=== PATIENT | female | born 1980 | race Hispanic/Latino ===

== ENCOUNTER 2017-09-17 23:15 | Inpatient (IN) | payer OTHER ==
[2017-09-17 23:58] VITALS: BMI 32.6
[2017-09-18] MEDS ORDERED: CEFAZOLIN/Water 2 GM/20 ML SYRINGE ONE (00:16)
[2017-09-18] MEDS ORDERED: Bicitra 30 ML UDCUP ONE (00:16)
[2017-09-18] MEDS: Lactated Ringer's 1,000 ML IV SCH ×2 (00:25→00:47)
[2017-09-18] MEDS ORDERED: Ondansetron HCl/PF 4 MG/2 ML Vial IVP PRN ×3 (00:33→03:56)
[2017-09-18] MEDS ORDERED: Promethazine HCl 25 MG/ML VIAL IM PRN ×3 (00:33→03:56)
[2017-09-18 00:37] LABS: Hemoglobin 10.9 g/dL (12.0-16.0); Mean Corpuscular HGB CONC 32.7 g/dL (32.0-36.0); Mean Corpuscular Hemoglobin 24.5 pg (27.0-31.0); Mean Corpuscular Volume 74.8 fL (78.0-98.0); Mean Platelet Volume 8.1 fL (7.4-10.4); Platelet Count 332 thou/uL (130-400); RBC Distribution Width 15.4 % (11.5-14.5); Red Blood Cell (RBC) Count 4.45 mill/uL (4.20-5.40); White Blood Cell (WBC) Count 8.6 thou/uL (4.8-10.8)
[2017-09-18] MEDS ORDERED: NS / Oxytocin 40 units/1000ml 1,000 ML IV SCH ×2 (00:45→03:56)
[2017-09-18] MEDS ORDERED: Bicitra 30 ML UDCUP PO SCH (00:45)
[2017-09-18] MEDS ORDERED: CEFAZOLIN/Water 2 GM/20 ML SYRINGE SLOW IVP SCH (00:45)
--- NOTE | 2017-09-18 00:57 | PDOC.LDHP ---
Labor and Delivery H&P Chief complaint: contractions HPI: 37yo at 38w2d by LMP with A2GDM with SROM painful ctx. Good FM. Current gestational age (weeks): 38 Due date: 09/30/17 Dating criteria: last menstrual period Grav: 3 Para: 2 OB History Details: prior cs x 2 Current complications: gestational diabetes (a2 on metformin) Abnormal US findings: No Current medications: pre- vitamins, other (metformin 1000 q hs) Previous surgical history: low tranverse CS Allergies/Adverse Reactions: Allergies Allergy/AdvReac Type Severity Reaction Status Date / Time No Known Allergies Allergy Verified 09/17/17 23:49 Social history: none - Physical Exam Vital signs reviewed and normal: yes General: NAD Heart: RRR Lungs: CTAB Abdomen: gravid Extremeties: no edema FHT: category 1 [place] contractions every: 4min - Vaginal Exam cm dilated: 6 Station: -1 - OB Labs RH: positive Antibody Screen: negative HIV: negative RPR: negative HEPSAg: negative 1 hour GCT: positive 3 hour GTT: positive GBS: negative Urine drug screen: not done Rubella: immune - Assessment 37yo at 38w2d by LMP with A2GDM previous x 2 in labor, dispo for RCS now. R/B/A d/w pt and she agrees to proceed.
[2017-09-18] MEDS ORDERED: Morphine PF 1 MG/ML SYR ONE (00:58)
[2017-09-18] MEDS ORDERED: Oxytocin 10 UNITS/ML VIAL ONE (00:59)
[2017-09-18] MEDS ORDERED: Ondansetron HCl/PF 4 MG/2 ML Vial ONE (00:59)
[2017-09-18] MEDS ORDERED: ePHEDrine/0.9% NaCl/PF SYRINGE 50 mg/10 ml ONE (00:59)
[2017-09-18] MEDS ORDERED: Lidocaine 1% PF 5 ML VIAL ONE (01:00)
[2017-09-18] MEDS ORDERED: Bupivacaine 0.75% W/DEXTROSE 8.25% 2 ML AMP ONE (01:00)
[2017-09-18 01:27] LABS: HBSAg Index 0.25 S/CO (0-0.99); Hep B Surf Ag Non-Reactive S/CO (NonReactive)
[2017-09-18] MEDS ORDERED: Fentanyl 100 MCG/2 ML VIAL ONE (01:37)
--- NOTE | 2017-09-18 02:14 | PDOC.OPDEL ---
OB Operative/Delivery Note Delivery Dr/Surgeon: Arsen Assist: Rosalia Pre-Delivery Diagnosis: active labor ( at 38wk, previous CS x 2 declines TOLAC, A2GDM) Procedure/Post Delivery Dx: repeat low transverse CS Weeks gestation: 38 Anesthesia: spinal - Findings A Sex: female Weight: 7 lb 9 oz - 1 min: 8 - 5 min: 9 - Additional Findings/Plan Placenta delivered: spontaneous findings: low transverse hysterotomy without extension, normal uterus, normal tubes, normal ovaries Estimated blood loss: 600 Post delivery plan: routine recovery
[2017-09-18] MEDS ORDERED: diphenhydrAMINE 50 MG/ML VIAL IVP PRN (02:19)
[2017-09-18] MEDS ORDERED: Hydrocerin (Eucerin) Cream 120 gm Jar TOP PRN (02:19)
[2017-09-18] MEDS ORDERED: Promethazine HCl 25 MG SUPP PR PRN (02:19)
[2017-09-18] MEDS ORDERED: Ketorolac Tromethamine 30 MG/ML VIAL IVP PRN (02:19)
[2017-09-18] MEDS ORDERED: Naloxone HCl 0.4 mg/ml Vial IVP PRN ×2 (02:19)
[2017-09-18] MEDS ORDERED: Naloxone HCl 0.4 mg/ml Vial IV PRN (02:19)
[2017-09-18] MEDS ORDERED: Communication Order-Pharmacy FS SCH (02:30)
[2017-09-18] MEDS ORDERED: Adacel (T-DAP) 0.5 ML VIAL IM ONE (03:56)
[2017-09-18] MEDS ORDERED: Bisacodyl 10 MG SUPP PR PRN (03:56)
[2017-09-18] MEDS ORDERED: Lanolin Ointment 7 GM TUBE TOP PRN (03:56)
[2017-09-18] MEDS ORDERED: Acetaminophen 325 MG TAB PO PRN (03:56)
[2017-09-18] MEDS ORDERED: diphenhydrAMINE 25 MG CAP PO PRN (03:56)
[2017-09-18] MEDS ORDERED: Simethicone Chewable 80 MG TAB PO PRN (03:56)
[2017-09-18] MEDS: Ibuprofen 800 MG TAB PO SCH ×3 (04:44→21:53)
[2017-09-18 05:22] LABS: Syphilis Antibody Nonreactive (Nonreactive); Syphilis Antibody Index 0.05 S/CO (<1.00 Non-Reactive)
[2017-09-18] MEDS: Prenatal Vitamin 1 TAB PO SCH (08:41)
[2017-09-18] MEDS: Ferrous Sulfate 325 MG TAB PO SCH ×2 (08:41→21:52)
[2017-09-18] MEDS: Docusate Calcium (SURFAK) 240 MG CAP PO SCH ×2 (08:41→21:53)
--- NOTE | 2017-09-18 10:11 | OP ---
DATE OF OPERATION: 09/18/2017 PREOPERATIVE DIAGNOSES: 1. Intrauterine at 38 weeks 2 days. 2. Prior x2. 3. Active labor. 4. A2 gestational diabetes. POSTOPERATIVE DIAGNOSES: 1. Intrauterine and 38 weeks 2 days. 2. Prior x2. 3. Active labor. 4. A2 gestational diabetes. PROCEDURE: Repeat low transverse section via Pfannenstiel skin incision. ANESTHESIA: Spinal. ATTENDING SURGEON: Shaista Leger M.D. SUSTAINABILITY ENGINEER: Dr. Rahul Lindsey ESTIMATED BLOOD LOSS: 600 mL. IVF: Pending. URINE OUTPUT: 600 mL. COMPLICATIONS: None. DRAINS: Seth catheter. PATHOLOGY: None. FINDINGS: Female in cephalic deflexed OT presentation, clear amniotic fluid, Apgars were 8 and 9, weight is pending. Normal uterus, ovaries and tubes bilaterally. No adhesions. OPERATIVE TECHNIQUE: The patient was taken to the operating room where spinal anesthesia was obtained without difficulty. The patient was prepped and draped in a sterile fashion in the dorsal supine position with a leftward tilt. After ensuring adequacy of anesthesia, a Pfannenstiel skin incision was made and carried down to the underlying subcutaneous tissue with the knife using the Bovie to achieve hemostasis. The fascia was nicked in the midline with the knife and carried laterally with the Bhat scissors. The superior aspect of the fascia was tented with 2 Kochers and dissected off the rectus with the Bhat scissors. The inferior aspect of the fascia was tented with 2 Kochers and dissected off the rectus down to the pubic symphysis. The peritoneum was manually entered into and manually retracted. The Christoph O retractor was placed. After ensuring the bowel was out of the way and there were no abdominal adhesions and cinched down the lower uterine segment was incised in a transverse fashion and extended with the Gallegos maneuver. The lower uterine segment was thinned. The infant's head was brought to the hysterotomy and delivered atraumatically followed by the body. Delayed cord clamping was performed and the was clamped and handed to awaiting hilary team. The placenta was allowed to spontaneously deliver. The uterus contracted well and the uterus was exteriorized, cleared of all clots and debris and posterior cul- de-sac was lapped out. The uterus was placed back into the abdomen and hysterotomy was repaired with a #1 Monocryl in a running locking fashion with excellent hemostasis noted. The pelvis was copiously irrigated and suctioned and the Christoph O retractor was removed. There was significant diastasis and the peritoneum was closed with a 2-0 chromic in a running fashion. The rectus muscles were noted to be hemostatic. The fascia was closed with a #1 PDS x2 sutures with excellent reapproximation. The subcutaneous tissue was irrigated and cauterized of any bleeders and reapproximated with a 2-0 plain gut in a running fashion. The skin was closed with 4-0 Monocryl in subcuticular fashion. Dermabond was applied. The patient tolerated procedure well. Sponge , lap, needle counts were correct x2. The patient was taken to recovery room in stable condition. The patient received Ancef 2 grams prior to procedure. CHONG
[2017-09-18] MEDS ORDERED: Zolpidem Tartrate 5 MG TAB PO PRN (14:30)
[2017-09-18] MEDS ORDERED: HYDROcodone/Acetaminophen 5/325 mg Tablet PO PRN ×2 (14:30)
--- NOTE | 2017-09-18 17:39 | PDOC.PP ---
Post Progress Note Post Day #: 0 PO intake tolerated: yes Flatus: yes Ambulation: yes Vital Signs (12 hours) Temp Pulse Resp BP Pulse Ox 09/18/17 16:42 98.5 F 72 20 100/61 09/18/17 16:39 98.5 F 72 20 09/18/17 12:00 97.6 F 72 17 109/66 98 09/18/17 08:44 98.0 F 75 20 09/18/17 07:33 98.0 F 75 20 102/56 L 09/18/17 05:53 98.5 F 76 20 117/62 Weight Weight 173 lb - Physical Examination General: NAD Cardiovascular: RRR Respiratory: non-labored breathing Abdominal: no distention, appropriately TTP Fundus firm & at: umb Skin: CS incision dry & intact Psychiatric: normal affect Result Diagrams: 09/18/17 00:17 Additional Labs: Post Labs Blood Type O POSITIVE 09/18/17 00:17 Hep Bs Antigen Non-Reactive S/CO (NonReactive) 09/18/17 00:17 - Assessment/Plan POD0 from [facility] at 37w for labor, A2GDM VSSAF Doing well appropriate postop milestones Rh pos RImm Hgb 10.9 postop , no sx anemia, mild anemia d/t surgical blood loss Cont postop care.
--- NOTE | 2017-09-19 03:12 | PDOC.PP ---
Post Progress Note Post Day #: 1 Subjective: Doing well, she was awake this AM PO intake tolerated: yes Flatus: yes Ambulation: yes Vital Signs (12 hours) Temp Pulse Resp BP 09/19/17 00:43 98.4 F 69 16 110/60 09/18/17 20:45 97.9 F 80 18 102/58 L 09/18/17 16:42 98.5 F 72 20 100/61 09/18/17 16:39 98.5 F 72 20 Weight Weight 173 lb - Physical Examination General: NAD Cardiovascular: no m/r/g Respiratory: clear to auscultation bilaterally Abdominal: + bowel sounds, lochia, no distention, appropriately TTP Extremities: negative homans (B) Skin: CS incision dry & intact (incision sutured closed) Neurological: no gross focal deficits Psychiatric: A&Ox3, normal affect Result Diagrams: 09/18/17 00:17 Additional Labs: Post Labs Blood Type O POSITIVE 09/18/17 00:17 Hep Bs Antigen Non-Reactive S/CO (NonReactive) 09/18/17 00:17 (1) delivery delivered Code(s): O82 - ENCOUNTER FOR DELIVERY WITHOUT INDICATION Status: Acute (2) Gestational diabetes Code(s): O24.419 - GESTATIONAL DIABETES MELLITUS IN , UNSP CONTROL Status: Acute - Assessment/Plan Gesttational DM, s/p repeat CS..doing well. She is just postop day 1 now. We will continue to follow today with possible dsch POD 2 or 3, based on how she is doing No evidence of ileus or metritis at this time patient seen at bedside
[2017-09-19] MEDS: Ibuprofen 800 MG TAB PO SCH ×3 (05:50→21:56)
[2017-09-19 05:57] LABS: Hemoglobin 9.3 g/dL (12.0-16.0); Mean Corpuscular HGB CONC 32.7 g/dL (32.0-36.0); Mean Corpuscular Hemoglobin 24.5 pg (27.0-31.0); Mean Corpuscular Volume 74.8 fL (78.0-98.0); Mean Platelet Volume 7.5 fL (7.4-10.4); Platelet Count 276 thou/uL (130-400); RBC Distribution Width 15.4 % (11.5-14.5); Red Blood Cell (RBC) Count 3.82 mill/uL (4.20-5.40); White Blood Cell (WBC) Count 9.4 thou/uL (4.8-10.8)
[2017-09-19] MEDS: Prenatal Vitamin 1 TAB PO SCH (09:22)
[2017-09-19] MEDS: Ferrous Sulfate 325 MG TAB PO SCH ×2 (09:22→21:55)
[2017-09-19] MEDS: Docusate Calcium (SURFAK) 240 MG CAP PO SCH ×2 (09:22→21:55)
[2017-09-20] MEDS: Ibuprofen 800 MG TAB PO SCH (06:06)
--- NOTE | 2017-09-20 08:29 | PDOC.EVN ---
Event Note - Event Note Event Note: [employer] Discharge SUMMARY Note: Patient has been seen this AM by Dr Lindsey for discharge. Patient desires discharge today. I called the nursery and per Luke, baby ok for discharge as long as recheck of bilirubin occurs tomorrow for follow up. This note is just follow up for discharge. DX: Repeat CS Admitted 09/18/17 Discharge: 09/20/17 Patient admitted by Arsen as a patient with prior CS and GDM, Dx with early labor and underwent repeat CS. I evaluated the patient on postop day 1, and she was seen on POSTOP Day 2 in the AM by DR Lindsey and cleared for discharge. I am completing the discharge summary. Postop HCT 28.5 No acute needs reported to medical staff on day of discharge. Incision sutured. Will follow up with Arsen for postop check.
[2017-09-20 08:36] VITALS: BP 122/63; TEMP 98.3
--- NOTE | 2017-09-20 08:51 | PRG ---
DATE OF SERVICE: 09/20/2017 SUBJECTIVE: The patient is a 37-year-old female, who is now postop day #2 status post a repeat C-sec tion at term. The patient reports she is tolerating p.o., voiding on her own, having good pain contr ol and decreased lochia. PHYSICAL EXAMINATION: VITAL SIGNS: Today, blood pressure is 126/74, temperature 98.4, pulse of 82, respiratory rate of 18. GENERAL: She appears to be in no acute distress. She is alert and oriented, cooperative and pleasan t to interact with. HEAD: Normocephalic, atraumatic. ABDOMEN: Soft. Fundus is firm. Incision is clean, dry, and intact with suture. ASSESSMENT AND PLAN: The patient is postoperative day #2, status post a repeat . The patie nt does have interest in being discharged if baby can be discharged.
[2017-09-20] MEDS: Docusate Calcium (SURFAK) 240 MG CAP PO SCH (09:29)
[2017-09-20] MEDS: Ferrous Sulfate 325 MG TAB PO SCH (09:30)
[2017-09-20] MEDS: Prenatal Vitamin 1 TAB PO SCH (09:30)
== END 2017-09-20 11:23 | disposition home or self-care (01) | DRG 766 ==
LOC: L&D/OP 23:15 → L&D 09-18 00:07 → 3SE 09-18 03:51
PROVIDERS: ADMIT Student in an Organized Health Care Education/Training Program; ATTEND Student in an Organized Health Care Education/Training Program
PROC: 10D00Z1 Extraction of Products of Conception, Low, Open Approach (ICD-10-PCS; principal; 2017-09-18)
DX: O34.211 Maternal care for low transverse scar from previous cesarean delivery (principal); Z3A.38 38 weeks gestation of pregnancy; Z37.0 Single live birth; O24.429 Gestational diabetes mellitus in childbirth, unspecified control
CPT/HCPCS: 36415; 51702; 85027; 86780; 86850; 86900; 86901; 87340; 99285; J1885; J2001; J2274; J2405; J2590; J3010; J3490

== ENCOUNTER 2020-04-02 18:00 | Outpatient (CLI) | payer BC | END 2020-04-02 18:01 | disposition home or self-care (01) | LOC: SLEEPLAB 18:00 | PROVIDERS: ATTEND Family Medicine | DX: G47.33 Obstructive sleep apnea (adult) (pediatric) (principal); I10 Essential (primary) hypertension; E66.9 Obesity, unspecified; F41.9 Anxiety disorder, unspecified; F32.9 Major depressive disorder, single episode, unspecified; R06.83 Snoring; R53.83 Other fatigue | CPT/HCPCS: 95806 ==

== ENCOUNTER 2020-06-10 19:30 | Outpatient (CLI) | payer BC | END 2020-06-10 19:31 | disposition home or self-care (01) | LOC: SLEEPLAB 19:30 | PROVIDERS: ATTEND Family Medicine | DX: G47.33 Obstructive sleep apnea (adult) (pediatric) (principal); R06.83 Snoring; G47.10 Hypersomnia, unspecified; E66.9 Obesity, unspecified; Z68.33 Body mass index [BMI] 33.0-33.9, adult | CPT/HCPCS: 95811 ==